=== PATIENT | female | born 2005 | race Two or more races ===

== ENCOUNTER 2024-09-22 12:03 | Outpatient (CLI) | payer BC ==
[2024-09-22 12:38] LABS: Basophils # (auto) 0 10 ^3/uL (0-0.2); Basophils % (auto) 0.2 % (0.0-2.0); Eosinophils # (auto) 0.1 10 ^3/uL (0-0.8); Eosinophils % (auto) 1.7 % (0.0-7.0); Hematocrit 39.5 % (36.0-46.0); Hemoglobin 13.3 g/dL (12.2-16.2); Lymphocytes # (auto) 1.8 10 ^3/uL (0.4-5.4); Lymphocytes % (auto) 39.3 % (10.0-50.0); Mean Corpuscular Hemoglobin 28.9 pg (28.0-32.0); Mean Corpuscular Hgb Conc. 33.8 g/dL (32.0-36.0); Mean Corpuscular Volume 85.7 fL (80.0-100.0); Monocytes # (auto) 0.4 10 ^3/uL (0-1.3); Monocytes % (auto) 8.3 % (0.0-12.0); Neutrophils # (auto) 2.3 10 ^3/uL (1.6-8.6); Neutrophils % (auto) 50.5 % (37.0-80.0); Platelet Count (auto) 238 10^3/uL (140-450); Red Blood Cells 4.61 10^6/uL (4.0-5.20); Red Cell Distribution Width 13.4 % (11.8-14.3); White Blood Cell 4.6 10^3/uL (4.4-10.8)
[2024-09-22 12:43] LABS: Urine Bacteria FEW /hpf (None Seen); Urine Blood Negative /uL (Negative); Urine Clarity Clear (Clear); Urine Color Colorless (Yellow); Urine Protein, UAD Negative (Negative); Urine Specific Gravity 1.002 (1.001-1.035); Urine Squamous Epithelial Cell FEW /hpf (<5); Urine Urobilinogen Normal (Negative); Urine WBC < 1 /HPF (0-5)
[2024-09-22 13:00] LABS: Alanine Aminotransferase < 9 U/L (7-40); Alkaline Phosphatase 73 U/L (46-116); Anion Gap 10 (5-15); Aspartate Aminotransferase 17 U/L (<34); BUN/Creatinine Ratio 10.5 (10.0-20.0); Blood Urea Nitrogen 8 mg/dL (9-23); Calcium 10.4 mg/dL (8.7-10.4); Carbon Dioxide 23 mmol/L (20-31); Chloride 110 mmol/L (98-107); Cholesterol 160 mg/dL (< 200); Glucose 87 mg/dL (74-106); HDL Cholesterol 39 mg/dL (40-59); LDL Cholesterol 113 mg/dL (< 100); Potassium 4.5 mmol/L (3.5-5.1); Sodium 143 mmol/L (136-145); Total Protein 7.6 g/dL (5.7-8.2); Triglycerides 78 mg/dL (< 150)
[2024-09-22 13:01] LABS: Bilirubin, Total 0.8 mg/dL (0.2-1.0)
[2024-09-22 13:11] LABS: Uric Acid 5.7 mg/dL (3.1-7.8)
[2024-09-23 10:47] LABS: Hepatitis B Core Total AB Negative (Negative)
[2024-09-23 11:17] LABS: Hepatitis A Total Antibody Positive (Negative); Hepatitis B Surface Antibody Negative (Negative); Hepatitis B Surface Antigen Negative (Negative); Hepatitis C Antibody Negative (Negative)
[2024-09-24 06:07] LABS: Chlamydia Trachomatis, NAA Negative (Negative); Neisseria gonorrhoeae, NAA Negative (Negative)
[2024-09-25 13:59] LABS: Erythrocyte Sedimentation Rate 8 mm/hr (0-20)
== END 2024-09-22 17:00 | disposition home or self-care (01) ==
LOC: LAB 12:03
PROVIDERS: ATTEND Family Medicine
DX: Z11.1 Encounter for screening for respiratory tuberculosis (principal); Z00.01 Encounter for general adult medical examination with abnormal findings; Z13.89 Encounter for screening for other disorder; Z11.3 Encounter for screening for infections with a predominantly sexual mode of transmission
CPT/HCPCS: 36415; 80053; 80061; 81001; 82785; 83036; 84443; 84550; 85025; 85652; 86003; 86141; 86160; 86225; 86235; 86376; 86431; 86704; 86706; 86708; 86803; 87086; 87340